=== PATIENT | female | born 1950 | race Caucasian/White ===

== ENCOUNTER 2021-08-13 02:42 | Inpatient (IN) | payer MEDICARE, MEDICAID ==
[~2021-08-13] VITALS: Ht 157.5 cm; Wt 77.8 kg
[2021-08-17 01:44] LABS: HEMOGLOBIN 12.4 gm/dl (12.3-15.3); RED BLOOD COUNT 5.11 M/UL (4.00-5.10); WHITE BLOOD COUNT 16.2 K/UL (4.5-11.0)
[2021-08-18 02:18] LABS: HEMOGLOBIN 11.7 gm/dl (12.3-15.3); RED BLOOD COUNT 4.85 M/UL (4.00-5.10); WHITE BLOOD COUNT 18.9 K/UL (4.5-11.0)
--- NOTE | 2021-08-18 23:40 | NUR ---
08/18/2021 ART PROFESSOR WAS NOTIFIED AT 2326 THAT PATIENT IS REFUSING MEDICINES AND VITAL SIGNS. NOCTURNALIST WAS ALSO NOTIFIED OF PATIENT REFUSING MEDICINES AND VITAL SIGNS AROUND 2336
[2021-08-19 01:37] LABS: HEMOGLOBIN 11.9 gm/dl (12.3-15.3); RED BLOOD COUNT 4.95 M/UL (4.00-5.10); WHITE BLOOD COUNT 16.6 K/UL (4.5-11.0)
[2021-08-20 02:07] LABS: HEMOGLOBIN 10.6 gm/dl (12.3-15.3); WHITE BLOOD COUNT 18.5 K/UL (4.5-11.0)
[2021-08-20 02:09] LABS: RED BLOOD COUNT 4.38 M/UL (4.00-5.10)
[2021-08-20 15:38] LABS: HEMOGLOBIN 11.3 gm/dl (12.3-15.3); RED BLOOD COUNT 4.7 M/UL (4.00-5.10); WHITE BLOOD COUNT 22.3 K/UL (4.5-11.0)
[2021-08-21 03:02] LABS: HEMOGLOBIN 10.8 gm/dl (12.3-15.3); RED BLOOD COUNT 4.53 M/UL (4.00-5.10); WHITE BLOOD COUNT 16.9 K/UL (4.5-11.0)
[2021-08-21 03:23] LABS: BUN/CREATININE RATIO 37 (0-10)
[2021-08-21] MEDS ORDERED: PROTONIX40 MG PO (10:44)
[2021-08-21] MEDS ORDERED: ATORVASTATIN CA40 MG PO (10:44)
[2021-08-21] MEDS ORDERED: FUROSEMIDE20 MG PO (10:44)
[2021-08-21] MEDS ORDERED: LOPRESSOR 50 MG50 MG PO (10:44)
[2021-08-21] MEDS ORDERED: FERROUS GLUCON324 M1 PO (10:44)
[2021-08-21] MEDS ORDERED: ISOSORBIDE MONO30 MG PO (10:44)
[2021-08-21] MEDS ORDERED: ASPIRIN EC81 MG PO (10:44)
[2021-08-21] MEDS ORDERED: AMARYL2 MG PO (11:51)
[2021-08-21] MEDS ORDERED: DEX4 GLUCOSE4 GM PO (11:51)
[2021-08-21] MEDS ORDERED: HUMALOG 10100 UNITS/ SC (11:57)
[2021-08-21] MEDS ORDERED: COMBIVENT RESPIM4 GM INH (12:03)
[2021-08-21] MEDS ORDERED: SPIRIVA18 MCG INH (12:03)
[2021-08-22 10:08] LABS: CREATININE, URINE 22.7 mg/dL (Not Estab.)
--- NOTE | 2021-08-23 15:08 | NUR ---
CALLED AND CLARIFIED APT DATE AND TIME WITH DR. CHRISTIANSON'S NURSE AND THEY STATE IT IS ON 08/24/21 @ 0903. CALLED [facility]ES AND NOTIFIED.
== END 2021-08-21 13:40 | disposition home or self-care (01) | DRG 280 ==
LOC: PROG CARE 02:42
PROVIDERS: Internal Medicine; Internal Medicine Cardiovascular Disease; Internal Medicine Nephrology; Physician Assistant; ADMIT Internal Medicine
PROC: B24BZZZ Ultrasonography of Heart with Aorta (ICD-10-PCS; 2021-08-13)
PROC: 4A023N7 Measurement of Cardiac Sampling and Pressure, Left Heart, Percutaneous Approach (ICD-10-PCS; principal; 2021-08-20)
PROC: B2111ZZ Fluoroscopy of Multiple Coronary Arteries using Low Osmolar Contrast (ICD-10-PCS; 2021-08-20)
DX: I13.0 Hypertensive heart and chronic kidney disease with heart failure and stage 1 through stage 4 chronic kidney disease, or unspecified chronic kidney disease (principal); I50.23 Acute on chronic systolic (congestive) heart failure; I21.A1 Myocardial infarction type 2; J96.21 Acute and chronic respiratory failure with hypoxia; J44.1 Chronic obstructive pulmonary disease with (acute) exacerbation; F15.20 Other stimulant dependence, uncomplicated; E87.1 Hypo-osmolality and hyponatremia; N18.30 Chronic kidney disease, stage 3 unspecified; I25.10 Atherosclerotic heart disease of native coronary artery without angina pectoris; D50.9 Iron deficiency anemia, unspecified; E11.40 Type 2 diabetes mellitus with diabetic neuropathy, unspecified; I25.5 Ischemic cardiomyopathy; I95.9 Hypotension, unspecified; R00.0 Tachycardia, unspecified; E11.65 Type 2 diabetes mellitus with hyperglycemia; Z90.49 Acquired absence of other specified parts of digestive tract; Z82.49 Family history of ischemic heart disease and other diseases of the circulatory system; Z79.899 Other long term (current) drug therapy; Z95.5 Presence of coronary angioplasty implant and graft; Z79.82 Long term (current) use of aspirin
CPT/HCPCS: ECHO; 36415; 36600; 71045; 80048; 80053; 80307; 81001; 82043; 82550; 82553; 82570; 82728; 82803; 82962; 83036; 83540; 83550; 83605; 83735; 83880; 84100; 84156; 84439; 84443; 84484; 84550; 85025; 85027; 86140; 87040; 93005; 93306; 94640; 94660; 94668; 94760; 99152; C1769; C1887; C1894; J0696; J1265; J1644; J1650; J1756; J1940; J2250; J2370; J2920; J3010; J7040; Q9965